=== PATIENT | female | born 1985 | race Caucasian/White ===

== ENCOUNTER 2025-06-13 12:15 | Emergency (ER) | payer BC ==
[~2025-06-13] VITALS: Ht 167.6 cm; Wt 122.5 kg
[2025-06-13 12:41] LABS: BASO # 0.1 10^3/uL (0.0-0.2); BASO % 0.6 % (0.0-1.0); EOS # 0.2 10^3/uL (0.0-0.5); EOS % 1.8 % (0.0-3.0); LYMPH # 2.2 10^3/uL (1.5-5.0); LYMPH % 22.2 % (24.0-44.0); MONO # 0.6 10^3/uL (0.0-0.8); MONO % 6.4 % (2.0-8.0); NEUTROPHILS # 6.8 10^3/uL (1.5-8.5); NEUTROPHILS % 68.6 % (36.0-66.0); PLATELET COUNT, AUTOMATED 264 10^3/uL (150-450)
[2025-06-13 13:08] LABS: CPK CREATINE PHOSPHOKINASE 124 U/L (34-145)
[2025-06-13 13:15] LABS: CALCIUM LEVEL 9.2 MG/DL (8.5-10.1); CARBON DIOXIDE LEVEL 26 MMOL/L (20-31); CHLORIDE LEVEL 103 MMOL/L (98-107); CK-MB VALUE MASS 1.7 NG/ML (<3.6); CREATININE FOR GFR 0.70 MG/DL (0.55-1.30); GLOMERULAR FILTRATION RATE > 90.0 (>58); MB/CK RELATIVE INDEX 1.37 (< OR =4); POTASSIUM SERUM 4.2 MMOL/L (3.5-5.1); SODIUM LEVEL 140 MMOL/L (136-145)
[2025-06-13] MEDS ORDERED: ISOVUE-370 76% 100 ML VIAL As Ordered ONE (13:35)
[2025-06-13 13:46] LABS: MAGNESIUM LEVEL 2.0 MG/DL (1.8-2.4)
[2025-06-13 14:40] LABS: CK-MB VALUE MASS 2.0 NG/ML (<3.6); CPK CREATINE PHOSPHOKINASE 126 U/L (34-145); MB/CK RELATIVE INDEX 1.58 (< OR =4)
[2025-06-13] MEDS ORDERED: CITA40TA7 PO (15:31)
[2025-06-13] MEDS ORDERED: WELLTAB38 PO (15:31)
[2025-06-13] MEDS ORDERED: HOME MED LIST COMPLETE! XX SCH (15:35)
[2025-06-13 16:00] VITALS: BP 138/79; TEMP 97.6; O2SAT 97
== END 2025-06-13 16:19 | disposition home or self-care (01) ==
LOC: M ED 12:15
DX: R07.9 Chest pain, unspecified (principal); J45.998 Other asthma; Z86.79 Personal history of other diseases of the circulatory system; F32.A Depression, unspecified; Z88.2 Allergy status to sulfonamides; Z88.0 Allergy status to penicillin; Z88.8 Allergy status to other drugs, medicaments and biological substances; Z79.899 Other long term (current) drug therapy
CPT/HCPCS: 36415; 70491; 71045; 71275; 80048; 82550; 82553; 83735; 84484; 85025; 93005; 93041; 94760; 99285; Q9967